=== PATIENT | female | born 1975 | race Caucasian/White ===

== ENCOUNTER 2018-03-22 21:03 | Emergency (ER) | payer MEDICARE ==
[2018-03-22] MEDS ORDERED: HALOPERIDOL LACTATE 5 MG/ML VIAL IM ONE (22:21)
[2018-03-22] MEDS ORDERED: Lidocaine 1% 5ml(IM or SUTURE)(PAIN CLINIC) IJ ONE (22:22)
[2018-03-22] MEDS ORDERED: cefTRIAXone SODIUM 1 GM VIAL ONE (22:24)
--- NOTE | 2018-03-22 22:25 | ED Physician Documentation ---
Sore Throat/Dental Pain - HISTORIAN Historian: patient - HPI Stated Complaint: Parasites in mouth Chief Complaint: Dental Pain Additional Information: feels like parasites in skin of face, has cat with known pinworms Onset: days ago (90) Context: Dental Caries Associated Symptoms: other (facial pain) Worsened By: nothing Further Comments: no - ROS CONST: no problems CVS/RESP: none GI/: denies: problems urinating, nausea, vomiting MS/SKIN/LYMPH: rash. denies: muscle aches NEURO/PSYCH: anxiety - PAST HX Past History: other (dental caries) Other History: none Immunizations: referred to PCP Allergies/Adverse Reactions: Allergies Allergy/AdvReac Type Severity Reaction Status Date / Time codeine Allergy Verified 03/23/18 02:13 risperidone [From Risperdal] Allergy Verified 03/23/18 02:13 sulfamethoxazole Allergy Verified 03/23/18 02:13 [From Bactrim] trimethoprim [From Bactrim] Allergy Verified 03/23/18 02:13 - SOCIAL HX Smoking History: cigarettes Alcohol Use: occasionally Drug Use: marijuana, methamphetamines - FAMILY HX Family History: Yes - VITAL SIGNS Vital Signs: Vital Signs Temp Pulse Resp BP Pulse Ox 20 124/82 03/22/18 21:10 03/22/18 21:10 - REVIEWED ASSESSMENTS Nursing Assessment Reviewed: Yes Vitals Reviewed: Yes Progress - Results/Orders Results/Orders: no testing ordered - Progress Progress: Pt. given Rocephin 1 gram IM and Haldol 5 mg IM in ER Critical Care Note - Critical Care Note Total Time (mins): 0 ED Results Lab/Radiology - Lab Results Lab Results: none ordered - Radiology Radiology Impressions: none ordered - Orders Orders: ED Orders Category Date Time Status Haloperidol Lactate [Haldol] Med 03/22/18 22:21 Once 5 mg IM NOW ONE Lidocaine 1% 5ml(IM or SUTURE) [Xylocaine] Med 03/22/18 22:22 Once 50 mg IJ NOW ONE cefTRIAXone SODIUM [Rocephin] Med 03/22/18 23:00 Ordered 1 gm IM QD Dental Pain Physical Exam - EXAM General Appearance: alert, moderate distress Head/Neck: trachea midline, thyroid nml, other (superficial sores face). No: pain over sinuses Eyes: eyes nml inspection, PERRL Mouth/Throat: widespread dental decay Ear/Nose: nml inspection Respiratory: no resp. distress, breath sounds nml CVS: reg. rate & rhythm, heart sounds nml Abdomen: soft, no organomegaly, normal bowel sounds, no abdominal bruit, no distension, non-tender Extremities: non-tender Skin: warm/dry, other (multiple sores face, trunk, exts) Neuro/Psych: anxiety Discharge Clincal Impression: Dental caries, Family history of pinworm infection Referrals: Constantino Tovar MD [Primary Care Provider] - 2 Days Comments: discharged with script for Vermox 100 mg 1 p.o. x 1 and repeat in 2 weeks. Has full script for Pen Vee K sdhe is to take until gone Condition: Stable Disposition: 01 HOME, SELF-CARE Decision to Admit: NO Decision Time: 22:24
[2018-03-22] MEDS ORDERED: cefTRIAXone SODIUM 1 GM VIAL IM SCH (23:00)
[2018-03-23 02:15] VITALS: BP 118/72
== END 2018-03-22 22:50 | disposition home or self-care (01) ==
LOC: ED 21:03
DX: K02.9 Dental caries, unspecified (principal); Z20.7 Contact with and (suspected) exposure to pediculosis, acariasis and other infestations; F17.200 Nicotine dependence, unspecified, uncomplicated; F15.90 Other stimulant use, unspecified, uncomplicated; F12.90 Cannabis use, unspecified, uncomplicated
CPT/HCPCS: J0696; J1630; 96372; 99283

== ENCOUNTER 2018-05-24 05:00 | Emergency (ER) | payer OTHER ==
[2018-05-24] MEDS: HALOPERIDOL LACTATE 5 MG/ML VIAL IM ONE (05:25)
[2018-05-24] MEDS: methylPREDNISolone SOD SUCC 40 MG/ML VIAL IM ONE (05:29)
[2018-05-24] MEDS: diphenhydrAMINE HCL 50 MG/ML VIAL IM ONE (05:50)
--- NOTE | 2018-05-24 06:09 | ED Physician Documentation ---
General Adult - HISTORIAN Historian: patient - HPI Stated Complaint: "Parasites" Chief Complaint: General Adult Onset: hours Timing: still present Severity: moderate Further Comments: yes (Pt is a 43 yo female with psych d/o, anxiety, ocd, delusion of infestation. Pt has a rash on neck and lower back that she attributes to bugs/infestation. Pt had similar presentation in March 2018, tx'd with Haldol to good effect.) - ROS CONST: no problems EYES/ENT: none CVS/RESP: none GI/: none MS/SKIN/LYMPH: rash (neck & back) NEURO/PSYCH: anxiety - PAST HX Past History: other (psych d/o, anxiety, delusions) Allergies/Adverse Reactions: Allergies Allergy/AdvReac Type Severity Reaction Status Date / Time codeine Allergy Verified 05/24/18 05:14 risperidone [From Risperdal] Allergy Verified 05/24/18 05:14 sulfamethoxazole Allergy Verified 05/24/18 05:14 [From Bactrim] trimethoprim [From Bactrim] Allergy Verified 05/24/18 05:14 - SOCIAL HX Smoking History: cigarettes Drug Use: marijuana, methamphetamines - FAMILY HX Family History: No (unk) - VITAL SIGNS Vital Signs: Vital Signs Temp Pulse Resp BP Pulse Ox 97.9 F 22 118/72 05/24/18 05:00 05/24/18 05:00 03/22/18 22:50 - REVIEWED ASSESSMENTS Nursing Assessment Reviewed: Yes Vitals Reviewed: Yes Progress - Progress Progress: Haldol 5 mg IM Solu-medrol 80 mg IM Benadryl 25 mg IM improved Rx Prednisone 50 mg. Take one by mouth once daily for 5 days. May take Benadryl, available over the counter. Use as directed. ED Results Lab/Radiology - Orders Orders: ED Orders Category Date Time Status Haloperidol Lactate [Haldol] Med 05/24/18 05:19 Once 5 mg IM NOW ONE diphenhydrAMINE HCL [Benadryl] Med 05/24/18 05:45 Once 25 mg IM NOW ONE methylPREDNISolone SOD SUCC [Solu-MEDROL] Med 05/24/18 05:22 Once 80 mg IM NOW ONE General Adult Physical Exam - PHYSICAL EXAM GENERAL APPEARANCE: moderate distress EENT: pharynx normal NECK: normal inspection, supple RESPIRATORY: no resp distress, chest non-tender, breath sounds normal CVS: reg rate & rhythm, heart sounds normal, equal pulses ABDOMEN: soft, no organomegaly, normal bowel sounds BACK: other (erythematous patch on lower back) SKIN: other (erythematous patch on lower back and on neck) EXTREMITIES: non-tender, normal range of motion, no evidence of injury NEURO: motor nml, sensation nml, other (delusion of infestation) Discharge Clincal Impression: Rash, psych d/o Referrals: Constantino Tovar MD [Primary Care Provider] - Condition: Stable Disposition: 01 HOME, SELF-CARE Decision to Admit: NO Decision Time: 06:56
[2018-05-24 07:49] VITALS: BP 143/68
== END 2018-05-24 07:15 | disposition home or self-care (01) ==
LOC: ED 05:00
DX: R21 Rash and other nonspecific skin eruption (principal); F22 Delusional disorders; F41.9 Anxiety disorder, unspecified
CPT/HCPCS: J1030; J1200; J1630; 96372; 99284; J2920

== ENCOUNTER 2018-06-09 13:30 | Emergency (ER) | payer OTHER ==
[2018-06-09 14:17] VITALS: BP 102/56
--- NOTE | 2018-06-09 14:40 | ED Physician Documentation ---
General Adult - HISTORIAN Historian: patient - HPI Stated Complaint: Pinworms Chief Complaint: General Adult Additional Information: Patient states that she has had pin worms 7 years ago. Now feeling like pin worms are still present and she has seen them in her nose and mouth. Feels like she is having some crawling over her body at times. Has noticed that she has a rash, she believes from scrubbing her skin so hard to get rid of the worms. Has not seen any in her stools or anal area. Patient states that she has lost weight about 7 years ago and was not able to gain weight. Now seems to be gaining weight again. Has been treated for pin worms three times. Symptoms continue to be present. Patient has a history of delusional disorder. Timing: still present - ROS CONST: no problems. denies: fever, chills - PAST HX Past History: other (delusional disorder) Surgeries/Procedures: none Immunizations: referred to PCP Allergies/Adverse Reactions: Allergies Allergy/AdvReac Type Severity Reaction Status Date / Time codeine Allergy Verified 06/09/18 14:03 risperidone [From Risperdal] Allergy Verified 06/09/18 14:03 sulfamethoxazole Allergy Verified 06/09/18 14:03 [From Bactrim] trimethoprim [From Bactrim] Allergy Verified 06/09/18 14:03 Home Medications: Ambulatory Orders Medication Instructions Recorded QUEtiapine FUMARATE [Seroquel] 25 mg PO QID 06/09/18 - SOCIAL HX Smoking History: less than 1 pack/day Alcohol Use: none Drug Use: marijuana, methamphetamines - FAMILY HX Family History: No - VITAL SIGNS Vital Signs: Vital Signs Temp Pulse Resp BP Pulse Ox 98.2 F 84 19 102/56 99 06/09/18 14:04 06/09/18 14:04 06/09/18 14:04 06/09/18 14:04 06/09/18 14:04 - REVIEWED ASSESSMENTS Nursing Assessment Reviewed: Yes Vitals Reviewed: Yes Progress - Progress Progress: Patient advised to stop using methamphetamines, they may cause hallucinations and delusions. General Adult Physical Exam - PHYSICAL EXAM GENERAL APPEARANCE: mild distress NECK: normal inspection, supple RESPIRATORY: no resp distress, chest non-tender, breath sounds normal. No: wheezes, rales, rhonchi CVS: reg rate & rhythm, heart sounds normal, equal pulses, no murmur, no gallop ABDOMEN: soft, no organomegaly, normal bowel sounds, no abdominal bruit, no distension, non-tender SKIN: warm/dry, normal color EXTREMITIES: non-tender NEURO: oriented X3, mood/affect nml, cognition normal, disoriented Discharge Clincal Impression: Parasite infection, Delusional disorder Referrals: Constantino Tovar MD [Primary Care Provider] - 2 Days Additional Instructions: I can not find any evidence of a parasitic infection at this time. 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 If you physically see a worm on your body get it on a piece of tape. Condition: Stable Disposition: 01 HOME, SELF-CARE Decision to Admit: NO Date of Decison to Admit: 06/09/18 Decision Time: 15:25
[2018-06-09 15:16] LABS: BASOPHILS % 0.7 (0.0-1.5); EOSINOPHILS % 3.1 % (0.0-6.8); MEAN CORPUSCULAR HEMOGLOBIN 30.6 pg (28.0-34.0); MEAN CORPUSCULAR VOLUME 94.8 fl (80.0-100.0); MONOCYTES % 4.3 % (0.0-11.0)
[2018-06-09 15:30] LABS: eGFR (African) > 60; eGFR (Non-African) > 60
[2018-06-10 07:46] LABS: OCCULT BLOOD,URINE 1+ (NEGATIVE); UROBILINOGEN URINE 0.2 Eu (0.2-1.0)
[2018-06-10 07:47] LABS: CANNABINOIDS NEGATIVE ng/mL (< 50); METHYLENEDIOXYMETHAMPHETAMINE NEGATIVE ng/mL (<500)
== END 2018-06-09 16:00 | disposition home or self-care (01) ==
LOC: ED 13:30
DX: F22 Delusional disorders (principal); R69 Illness, unspecified
CPT/HCPCS: 80053; 81002; 85025; G0481; 80377; 99282; 99283

== ENCOUNTER 2018-11-30 02:16 | Emergency (ER) | payer OTHER ==
[2018-11-30] MEDS ORDERED: cefTRIAXone SODIUM 1 GM INJ IM ONE (02:45)
[2018-11-30] MEDS ORDERED: HYDROcodone /APAP 10/325 1 EACH TABLET PO ONE (02:46)
[2018-11-30] MEDS ORDERED: CEPHALEXIN 250 MG CAPSULE PO ONE (02:47)
[2018-11-30] MEDS ORDERED: LIDOCAINE HCL 1% PF 50MG/5ML AMP (IM/SUTURE/PAIN CLINIC) ONE (02:49)
--- NOTE | 2018-11-30 02:56 | ED Physician Documentation ---
Ear Complaints - HISTORIAN Historian: patient - HPI Stated Complaint: "I have this abscess at the top of my ear that I have had for 3 days" Chief Complaint: Ear Complaints Additional Information: abscess helix lt ear onset 4 days ago denies known trauma Timing: worse Location of Pain: L ear Severity: severe Associated Symptoms: dull pain, aching. denies: discharge, hearing loss - ROS CONST: no problems CVS/RESP: none GI/: nausea. denies: vomiting MS/SKIN/LYMPH: none NEURO/PSYCH: none All Systems -: Yes - PAST HX Past History: none Allergies/Adverse Reactions: Allergies Allergy/AdvReac Type Severity Reaction Status Date / Time codeine Allergy Verified 11/30/18 02:33 risperidone [From Risperdal] Allergy Verified 11/30/18 02:33 sulfamethoxazole Allergy Verified 11/30/18 02:33 [From Bactrim] trimethoprim [From Bactrim] Allergy Verified 11/30/18 02:33 Home Medications: Ambulatory Orders Medication Instructions Recorded QUEtiapine FUMARATE [Seroquel] 50 mg PO BID 06/09/18 Quetiapine Fumarate [Seroquel] 100 mg PO HS 11/30/18 - SOCIAL HX Smoking History: cigarettes Alcohol Use: occasionally Drug Use: cocaine, marijuana, methamphetamines - FAMILY HX Family History: No - VITAL SIGNS Vital Signs: Vital Signs Temp Pulse Resp BP Pulse Ox 97.2 F L 89 16 148/94 99 11/30/18 02:20 11/30/18 02:20 11/30/18 02:20 11/30/18 02:20 11/30/18 02:20 - REVIEWED ASSESSMENTS Nursing Assessment Reviewed: Yes Vitals Reviewed: Yes ED Results Lab/Radiology - Orders Orders: ED Orders Category Date Time Status Cephalexin [Keflex] Med 11/30/18 02:47 Once 1,000 mg PO NOW ONE HYDROcodone /APAP 10/325 [Doyle 10/325] Med 11/30/18 02:46 Once 1 each PO NOW ONE Lidocaine 1% 5ml(IM or SUTURE) [Xylocaine] Med 11/30/18 02:49 Discontinued 50 mg .ROUTE .STK-MED ONE cefTRIAXone SODIUM [Rocephin] Med 11/30/18 02:45 Once 1 gm IM NOW ONE Ear Complaint Physical Exam - EXAM General Appearance: moderate distress Ear: senior water/wastewater engineer.canal nml, pain w movement of auricl, left. No: auricle nml Mouth/Throat: lips nml, gums nml, pharynx nml Nose: nml inspection Head/Neck: atraumatic Eye: eyes nml inspection Resp/CVS: breath sounds nml, heart sounds nml, lungs clear Abdomen: non-tender Skin: nml color, no skin rash. No: cyanosis, skin rash Neuro/Psych: oriented x3, mood/affect nml Discharge Clincal Impression: abscess helix lt ear Referrals: Constantino Tovar MD [Primary Care Provider] - 2 Days Comments: pt to see ENT in the am Condition: Fair Disposition: 01 HOME, SELF-CARE Decision to Admit: NO Decision Time: 03:13
[2018-11-30] MEDS ORDERED: LIDOCAINE HCL 1% PF 50MG/5ML AMP (IM/SUTURE/PAIN CLINIC) IJ ONE (03:14)
[2018-11-30 03:19] VITALS: BP 137/89
== END 2018-11-30 03:15 | disposition home or self-care (01) ==
LOC: ED 02:16
DX: H60.02 Abscess of left external ear (principal)
CPT/HCPCS: 96372; 99282; 99283; J0696